=== PATIENT | female | born 1955 | race Caucasian/White ===

== ENCOUNTER 2017-04-03 13:49 | Observation (INO) ==
--- NOTE | 2017-04-03 15:14 | Emergency Department Note ---
Disposition Clinical Impression: Syncope and collapse, Polycythemia rubra vera Disposition: Admitted As Inpatient Condition: Good Reasons to Return/Additional Instructions: Chest pains, shortness of breath, severe back pain, repeat syncope, altered mental status, loss of consciousness, focal muscle weakness Referrals: Marva Venegas, CAROLYNE [Primary Care Provider] - Time of Disposition: 19:45 General Adult HPI - General Chief complaint: ED Syncope Stated complaint: Fall Head injury/syncopal episode Time Seen by Provider: 04/03/17 15:05 Source: patient Limitations: no limitations Nursing Notes Reviewed: Yes Vital Signs Reviewed: Yes - History of Present Illness HPI Narrative: Mrs. Martel is a 61 yo woman with history of CVA, intracranial hemorrhage, DM, who presented to the ED with witnessed fall this morning and altered mental status. The patient was apparently seen by daughter's boyfriend having fall backwards this morning. He did not appear the patient lost consciousness, however the boyfriend did mention that she appeared "out of it" for a few minutes after the fall. The patient does not seem to remember this experience at all. She cannot, whether or not this was a mechanical fall or if she had any sort of symptoms leading up to this fall. In fact she says that she is unable to remember anything between this morning and dinnertime last night. According to the patient's daughter, she does have a history of a stroke in 2007 and she also had a brain hemorrhage at some point earlier this year which was secondary to trauma. At this time she is complaining of no headache, visual disturbances, weakness, paresthesias. She did not lose bladder or bowel control at that time. She is not currently having any chest pains, shortness of breath, palpitations. To her knowledge this has never happened before. He she does admit to swelling in her left lower extremity which has been occurring for several days. It is not associated with any severe pain, however she did recently have a left knee replacement. Pain Scale: 0 - Related Data Home Medications Medication Instructions Recorded Confirmed Amitriptyline [Elavil] 25 mg PO HS 09/01/15 04/03/17 Furosemide [Lasix] 20 mg PO DAILY 09/01/15 04/03/17 Glimepiride [Amaryl] 2 mg PO QAM 09/01/15 04/03/17 Levothyroxine [Synthroid] 25 mcg PO DAILY 09/01/15 04/03/17 Lisinopril [Zestril] 20 mg PO DAILY 09/01/15 04/03/17 metFORMIN [Glucophage] 1,000 mg PO BIDWM 09/01/15 04/03/17 Aspirin [Lo-Dose Aspirin EC] 81 mg PO DAILY 06/11/16 04/03/17 Cholecalciferol (Vitamin D3) 2,000 unit PO DAILY 06/11/16 04/03/17 [Vitamin D] Multivitamin [Multivitamins] 1 each PO DAILY 06/11/16 04/03/17 Dabigatran [Pradaxa] 150 mg PO BID 09/25/16 04/03/17 HYDROcodone/Acet 5/325 mg [[place] 1 tab PO TID PRN 09/25/16 04/03/17 5-325 mg] Carvedilol [Carvedilol] 12.5 mg PO BID 04/03/17 04/03/17 Simvastatin [Zocor] 40 mg PO HS 04/03/17 04/03/17 Allergies Allergy/AdvReac Type Severity Reaction Status Date / Time diphenhydramine Allergy Unknown Unknown Verified 12/25/16 15:05 hydroxyurea Allergy Unknown Unknown Verified 12/25/16 15:05 latex Allergy Unknown Unknown Verified 12/25/16 15:05 cephalexin AdvReac Mild Rash Verified 12/25/16 15:05 clarithromycin AdvReac Mild Rash Verified 12/25/16 15:05 clindamycin AdvReac Mild Rash Verified 12/25/16 15:05 clonidine AdvReac Mild Fatigue Verified 12/25/16 15:05 propoxyphene AdvReac Mild Anxious Verified 12/25/16 15:05 rosuvastatin AdvReac Mild Nausea Verified 12/25/16 15:05 sulfamethoxazole AdvReac Mild Rash Verified 12/25/16 15:05 tramadol AdvReac Mild Insomnia Verified 12/25/16 15:05 trimethoprim AdvReac Mild Rash Verified 12/25/16 15:05 vancomycin AdvReac Mild Rash Verified 12/25/16 15:05 Constitutional: Denies: fever, chills, weakness Eyes: Denies: eye pain, vision change ENT ED: Denies: epistaxis, congestion Cardiovascular: Denies: chest pain, palpitations, dyspnea on exertion Respiratory: Denies: cough, dyspnea, wheezes, hemoptysis Neurological: Denies: weakness, numbness, paresthesias Past Medical History - Past Medical History Medical history: Reports: diabetes, hypertension, peripheral artery disease Surgical history: Reports: pacemaker/AICD, other (He has had a cervical fusion and the lower back fusion. She is had multiple surgeries on both hips, 5 on the right and 7 on the left.) Psychiatric history: Reports: depression - Social History Smoking Status: Never smoker Smokeless Tobacco Status: No Alcohol use: Reports: none Drug use: Reports: none Physical Exam Gen.: Vitals noted. No acute distress. AAOx3 HEENT: PERRL/EOMI, oropharynx clear, Normocephalic, atraumatic Neck: Supple. No adenopathy. Cardiac: RRR, no murmur, +S1/S2 Pulmonary: CTA bilaterally, no wheezes, rales or rhonchi, equal chest expansion Abdomen: soft, nontender, BS noted, no guarding Back: Nontender throughout. MSK: ROM intact, no joint swelling noted Extremities: LLE s/p Knee replacement, 2+ pitting edema with warmth. Neuro: A&Ox3, moves all extremities, no focal deficits Psych: Appropriate mood and behavior - General Limitations: no limitations General appearance: alert, in no apparent distress Course Vital Signs Temperature 99.4 F 04/03/17 14:00 Pulse Rate 76 04/03/17 14:00 Respiratory Rate 16 04/03/17 14:00 Blood Pressure 162/83 04/03/17 14:00 O2 Sat by Pulse Oximetry 99 04/03/17 14:00 Temperature 99.4 F 04/03/17 14:00 Pulse Rate 73 04/03/17 17:06 Respiratory Rate 18 04/03/17 19:27 Blood Pressure 160/80 04/03/17 19:27 O2 Sat by Pulse Oximetry 99 04/03/17 17:06 Oxygen Delivery Oxygen Delivery Room Air Medical Decision Making - MDM Narrative Medical decision making narrative: I reviewed the patient's labs and imaging which showed no acute process in the head or the chest. Labs to demonstrate a leukocytosis of 24, however the patient does have a history of elevated white count in the past. Given the history of recent surgery along with swelling of left leg, I did check a d- dimer which was positive, however a CTA of the chest was negative. Initial EKG on presentation was normal, however the patient does require workup of this episode of syncope including for possible arrhythmias. I spoke with the hospitalist who is accepted this patient for admission for arrhythmia in the setting of syncope. - Medical Records Medical records reviewed: Yes I reviewed the patient's medical records. - Lab Data Lab results reviewed: Yes I reviewed the patient's lab results. Result diagrams: 04/03/17 15:26 04/03/17 15:26 Lab Results 04/03/17 04/03/17 04/03/17 Range/Units 15:26 15:26 15:26 WBC 24.4 H (4.3-11.1) K/mcL RBC 5.33 H (3.82-4.97) M/mcL Hgb 10.8 L (11.5-15.4) g/dL Hct 37.8 (35.3-44.9) % MCV 70.9 L (83.0-100.0) fL MCH 20.3 L (28.0-33.3) pg MCHC 28.6 L (31.6-35.5) g/dL RDW 20.9 H (11.5-14.5) % Plt Count 838 H (140-400) K/mcL MPV 10.4 (9.4-12.4) fL Immature Gran % 1.1 (0-4) % Seg Neutrophils % 84.9 % Lymphocytes % 6.0 % Monocytes % 4.6 % Eosinophils % 2.3 % Basophils % 1.1 % Neutrophils # 20.7 H (1.6-8.9) K/mcL Lymphocytes # 1.5 (0.6-4.6) K/mcL Monocytes # 1.1 (0.0-1.3) K/mcL Eosinophils # 0.6 (0.0-0.6) K/mcL Basophils # 0.3 H (0.0-0.2) K/mcL Platelet Estimate Marked Increase H (Normal) Large Platelets Present A (Not Present) Hypochromasia Present A (Not Present) Anisocytosis 2+ A (Not Present) Microcytosis Present A (Not Present) D-Dimer (0-500) ng/mLFEU Sodium 134 L (136-145) mEq/L Potassium 4.1 (3.5-5.1) mEq/L Chloride 103 (98-107) mEq/L Carbon Dioxide 26 (23-29) mEq/L BUN 13 (8-23) mg/dL Creatinine 0.66 (0.60-1.20) mg/dL Est GFR ( Amer) > 60 (> 60) Est GFR (Non-Af Amer) > 60 (> 60) BUN/Creatinine Ratio 20 (6-26) Glucose 343 H (70-105) mg/dL Calculated Osmolality 292 (280-300) Lactic Acid (0.5-2.2) mmol/L Calcium 8.9 (8.6-10.3) mg/dL Troponin I < 0.03 (< 0.04) ng/mL 04/03/17 04/03/17 Range/Units 15:26 18:18 WBC (4.3-11.1) K/mcL RBC (3.82-4.97) M/mcL Hgb (11.5-15.4) g/dL Hct (35.3-44.9) % MCV (83.0-100.0) fL MCH (28.0-33.3) pg MCHC (31.6-35.5) g/dL RDW (11.5-14.5) % Plt Count (140-400) K/mcL MPV (9.4-12.4) fL Immature Gran % (0-4) % Seg Neutrophils % % Lymphocytes % % Monocytes % % Eosinophils % % Basophils % % Neutrophils # (1.6-8.9) K/mcL Lymphocytes # (0.6-4.6) K/mcL Monocytes # (0.0-1.3) K/mcL Eosinophils # (0.0-0.6) K/mcL Basophils # (0.0-0.2) K/mcL Platelet Estimate (Normal) Large Platelets (Not Present) Hypochromasia (Not Present) Anisocytosis (Not Present) Microcytosis (Not Present) D-Dimer 1948 H (0-500) ng/mLFEU Sodium (136-145) mEq/L Potassium (3.5-5.1) mEq/L Chloride (98-107) mEq/L Carbon Dioxide (23-29) mEq/L BUN (8-23) mg/dL Creatinine (0.60-1.20) mg/dL Est GFR ( Amer) (> 60) Est GFR (Non-Af Amer) (> 60) BUN/Creatinine Ratio (6-26) Glucose (70-105) mg/dL Calculated Osmolality (280-300) Lactic Acid 1.4 (0.5-2.2) mmol/L Calcium (8.6-10.3) mg/dL Troponin I (< 0.04) ng/mL - Radiology Data Radiology results reviewed: Yes I reviewed the patient's radiology results. - EKG Data EKG #1 EKG attestation: Yes I reviewed and interpreted this EKG. EKG shows normal: sinus rhythm Rate: normal
[2017-04-03 15:37] LABS: Basophils # 0.3 K/mcL (0.0-0.2); Basophils % 1.1 %; Eosinophils # 0.6 K/mcL (0.0-0.6); Eosinophils % 2.3 %; Hematocrit 37.8 % (35.3-44.9); Hemoglobin 10.8 g/dL (11.5-15.4); Immature Granulocytes % 1.1 % (0-4); Lymphocytes # 1.5 K/mcL (0.6-4.6); Mean Corpuscular HGB Conc 28.6 g/dL (31.6-35.5); Mean Corpuscular Hemoglobin 20.3 pg (28.0-33.3); Mean Corpuscular Volume 70.9 fL (83.0-100.0); Mean Platelet Volume 10.4 fL (9.4-12.4); Monocytes # 1.1 K/mcL (0.0-1.3); Monocytes % 4.6 %; Neutrophils # 20.7 K/mcL (1.6-8.9); Platelet Count 838 K/mcL (140-400); Red Blood Count 5.33 M/mcL (3.82-4.97); Red Cell Distribution Width 20.9 % (11.5-14.5); Segmented Neutrophils % 84.9 %
--- NOTE | 2017-04-03 15:41 | Emergency Department Note ---
START Narrative - START START: I examined this patient and my medical decision-making was reviewed with the [employer] MACHINE OPERATOR/PA/Advanced Practice Nurse/Resident Physician. I agree with the documented findings, disposition and treatment plan as described except to the extent set forth below. The patient did have what appears to be a syncopal episode. She had her episode witnessed by the daughter's boyfriend who is not here. He is not sure if she hit her head. She did fall straight backward from a seated position. The patient denies any neck pain and no neck pain palpation. Head CT will be done as the patient is anticoagulated. Also did have knee surgery on March 18 so will also have a Doppler left lower extremity as there is swelling there and a d-dimer. Additional labs including troponin are pending. I did review the EKG showing a normal sinus rhythm with a rate of 80 without evidence of acute ischemic change. There is no evidence of Brugada syndrome, prolonged QT, hypertrophic myopathy or WPW. The patient will be admitted to the hospital for further evaluation of likely syncope. She denies any localized numbness or weakness of extremities, slurred speech, facial droop or confusion. No chest pain, shortness of breath or sweating. [id number] I did speak with the hospitalist who accepted the patient for admission and the main indication of admission is arrhythmia evaluation as the patient did have a syncopal episode and we are unaware if there is preceding lightheadedness or this was a drop attack patient does have significant concern for coronary disease with her history of peripheral arterial disease hypertension or diabetes and this could certainly have been from a arrhythmia. 185
[2017-04-03 15:49] LABS: BUN/Creatinine Ratio 20 (6-26); Blood Urea Nitrogen 13 mg/dL (8-23); Calcium 8.9 mg/dL (8.6-10.3); Carbon Dioxide 26 mEq/L (23-29); Chloride 103 mEq/L (98-107); Glucose 343 mg/dL (70-105); Osmolality,Calculated 292 (280-300); Potassium 4.1 mEq/L (3.5-5.1); Sodium 134 mEq/L (136-145); eGFR For African Americans > 60 (> 60); eGFR For Non-African Americans > 60 (> 60)
[2017-04-03 16:05] LABS: Platelet Estimate Marked Increase (Normal)
[2017-04-03 16:06] LABS: Anisocytosis 2+ (Not Present); Hypochromasia Present (Not Present); Microcytosis Present (Not Present)
[2017-04-03 16:08] LABS: Large Platelets Present (Not Present)
[2017-04-03] MEDS ORDERED: Naloxone 0.4 MG/ML INJ IVP PRN (21:08)
[2017-04-03] MEDS ORDERED: Acetaminophen 325 MG TABLET PO PRN (21:08)
[2017-04-03] MEDS ORDERED: Ondansetron 4 MG/2 ML VIAL IVP PRN (21:08)
[2017-04-03] MEDS ORDERED: D5% in Water 1,000 ML IVC PRN (21:11)
[2017-04-03] MEDS ORDERED: *HR* Dextrose 50 % in Water (Syg) 50 ML SYRINGE IVP PRN (21:11)
[2017-04-03] MEDS ORDERED: Dextrose Gel 15 GM/37.5 ML TUBE PO PRN ×2 (21:11)
--- NOTE | 2017-04-03 21:15 | Internal Med History&Physical ---
Date of Encounter: 04/03/17 Time of Encounter: 21:00 Assessment and Plan (1) Syncope and collapse Current visit: Yes Status: Acute unclear etiology. no evidence of infection- UA not s/o UTI, chest XRay clear. D- dimer elevated but Venous Doppler B/L lower extremities negative for superficial or deep venous thromboses; CTA chest showed no PE. Continue Telemetry monitoring, cycle Troponins. Check carotid Doppler and Echocardiogram due to underlying h/o- polycythemia and increased risk of thrombosis; supportive care; (2) Essential hypertension Current visit: Yes Status: Chronic BP well-controlled; resume home meds; (3) Diabetes mellitus Current visit: Yes Status: Chronic blood sugars noted to be high; check HbA1C and start Accucheck blood glucose monitoring with sliding scale insulin as needed; diabetic diet; Qualifiers: Diabetes mellitus type: type 2 Diabetes mellitus complication status: with unspecified complications Diabetes mellitus terminal carman insulin use: without senior care use Qualified Code(s): E11.8 - Type 2 diabetes mellitus with unspecified complications (4) Atrial fibrillation Current visit: Yes Status: Chronic continue Telemetry monitoring; currently rate-controlled; continue beta khushi and anticoagulation with Pradaxa; Qualifiers: Atrial fibrillation type: paroxysmal Qualified Code(s): I48.0 - Paroxysmal atrial fibrillation (5) Polycythemia rubra vera Current visit: Yes Status: Chronic follows with Hematology, on intermittent phlebotomy; Hb lower than normal due to recent knee replacement surgery; continue to monitor; leukocytosis and thrombocytosis, c/w baseline; Internal Medicine - H&P: HPI Chief complaint: Syncope Admitted From: Emergency Dept Plans for Post Hospital Care: Home History of present illness: Ms. Martel is a 61 year old female with h/o- PCV, HTN, who presents with c/o- syncope. She was in her usual state of health until yesterday. SHe woke up this morning but could not remember whether or not she followed her daily routine, until she stood up from her bed and fell backwards "like a tree". This was witnessed by her family, who is not at bedside now. When she regained consciousness, she was in a chair-lift at home. No seizure-like activity reported. No prior similar episodes. No dizziness, chest pain, palpitations, diaphoresis, nausea, vomiting prior to this episode. She recently had left knee replacement and has associated leg swelling, using a walker. Past Med Surg Social Fam HX - Past Medical History Medical history: arthritis, atrial fibrillation, diabetes, hypertension, thyroid disease, other (PCV) Psychiatric history: depression - Past Surgical History Surgical History: hip replacement (7 hip replacements B/L), knee replacement ( left TKR), pacemaker/AICD, other (He has had a cervical fusion and the lower back fusion. She is had multiple surgeries on both hips, 5 on the right and 7 on the left.) - Social History Smoking Status: Never smoker Smokeless Tobacco Status: No Alcohol use: none Drug use: none Occupational status: unemployed Current living situation: Home, With Family Activity Level: Uses cane/walker Recent Out of Country Travel Within the Last 8 Weeks: No Exposure or Possible Exposure to Illness During Travel: No - Family History Mother Hx Family Cardiac Disorders: Yes (Pulomonary HTN, PR, CABG) Hx Family Respiratory Disorders: Yes (Emphysema) Hx Family Cancer: No Hx Family GI Disorders: No Hx Family Genitourinary Disorders: No Hx Family Endocrine Disorder: Yes (DM) Hx Family Musculoskeletal Disorders: No Hx Family Neuromuscular Disorders: No Hx Family Neurologic Disorders: No Hx Family HEENT Disorders: No Hx Family Autoimmune Disorders: No Hx Family Reproductive Disorders: No Hx Family Psychosocial Disorders: No Hx Family Medical Disorders: No Father Hx Family Cardiac Disorders: No Hx Family Respiratory Disorders: No Hx Family Cancer: Yes (Colon) Hx Family GI Disorders: No Hx Family Genitourinary Disorders: No Hx Family Endocrine Disorder: No Hx Family Musculoskeletal Disorders: No Hx Family Neuromuscular Disorders: No Hx Family Neurologic Disorders: No Hx Family HEENT Disorders: No Hx Family Autoimmune Disorders: No Hx Family Reproductive Disorders: No Hx Family Psychosocial Disorders: No Hx Family Medical Disorders: No Internal Medicine - H&P: Meds Amitriptyline [Elavil] 25 mg PO HS 09/01/15 [History] Furosemide [Lasix] 20 mg PO DAILY 09/01/15 [History] Glimepiride [Amaryl] 2 mg PO QAM 09/01/15 [History] Levothyroxine [Synthroid] 25 mcg PO DAILY 09/01/15 [History] Lisinopril [Zestril] 20 mg PO DAILY 09/01/15 [History] metFORMIN [Glucophage] 1,000 mg PO BIDWM 09/01/15 [History] Aspirin [Lo-Dose Aspirin EC] 81 mg PO DAILY 06/11/16 [History] Cholecalciferol (Vitamin D3) [Vitamin D] 2,000 unit PO DAILY 06/11/16 [History] Multivitamin [Multivitamins] 1 each PO DAILY 06/11/16 [History] Dabigatran [Pradaxa] 150 mg PO BID 09/25/16 [History] HYDROcodone/Acet 5/325 mg [[place] 5-325 mg] 1 tab PO TID PRN 09/25/16 [History] Carvedilol [Carvedilol] 12.5 mg PO BID 04/03/17 [History] Simvastatin [Zocor] 40 mg PO HS 04/03/17 [History] 3 Allergy/AdvReac Type Severity Reaction Status Date / Time diphenhydramine Allergy Unknown Unknown Verified 12/25/16 15:05 hydroxyurea Allergy Unknown Unknown Verified 12/25/16 15:05 latex Allergy Unknown Unknown Verified 12/25/16 15:05 cephalexin AdvReac Mild Rash Verified 12/25/16 15:05 clarithromycin AdvReac Mild Rash Verified 12/25/16 15:05 clindamycin AdvReac Mild Rash Verified 12/25/16 15:05 clonidine AdvReac Mild Fatigue Verified 12/25/16 15:05 propoxyphene AdvReac Mild Anxious Verified 12/25/16 15:05 rosuvastatin AdvReac Mild Nausea Verified 12/25/16 15:05 sulfamethoxazole AdvReac Mild Rash Verified 12/25/16 15:05 tramadol AdvReac Mild Insomnia Verified 12/25/16 15:05 trimethoprim AdvReac Mild Rash Verified 12/25/16 15:05 vancomycin AdvReac Mild Rash Verified 12/25/16 15:05 All Systems PM: A 10-system review of systems was performed and is negative for pertinent findings except as documented above in the HPI. - Constitutional Constitutional: no chills, no fever(s), no night sweats - EENT Eyes: no change in vision, no discharge, no pain, no photophobia Ears: no ear discharge, no ear pain, no tinnitus Nose, mouth and throat: no dysphagia, no nasal discharge, no neck pain, no sore throat - Cardiovascular Cardiovascular ROS IM: syncope - Respiratory Respiratory: no cough, no dyspnea, no wheezing, no excessive phlegm production - Gastrointestinal Gastrointestinal: no abdominal pain, no diarrhea, no hematemesis, no hematochezia, no melena, no nausea, no vomiting - Genitourinary Genitourinary: no change in urinary stream, no dysuria, no flank pain, no hematuria - Musculoskeletal Musculoskeletal ROS IM: no numbness, no tingling - Integumentary Integumentary IM: no rash, no unusual bruising - Neurological Neurological ROS: no confusion, no convulsions, no focal weakness, no numbness, no tingling, no tremor(s) - Hematologic/Lymphatic Hematologic/Lymphatic: no easy bruising - Constitutional Vitals: Temp Pulse Resp BP Pulse Ox 99.7 F H 74 16 164/74 98 04/03/17 19:36 04/03/17 19:36 04/03/17 19:36 04/03/17 19:36 04/03/17 19:36 General appearance: Present: A&O X 3, answers questions appropriately - Respiratory Respiratory exam: Present: CTAB. Absent: accessory muscle use, rales, rhonchi, wheezes - Cardiovascular Cardiovascular exam: Present: irregular rhythm, +S1, +S2. Absent: diastolic murmur, gallop, rubs, systolic murmur - GI/Abdominal GI/Abdominal exam: Present: normal bowel sounds, soft, no peritoneal signs. Absent: distended, tenderness - Extremities Exam Extremities exam: Present: full ROM (restricted in left knee due to recent surgery), pedal edema (left LE edema, surgical peterson and incision clean and dry on left knee), warm, radial pulses palpable and symmetrical. Absent: calf tenderness, cyanotic - Neurological Exam Neurological exam: Present: CN II-XII intact, oriented X3, no focal deficits. Absent: pronater drift, facial droop, speech deficit Internal Med - H&P Results - Labs CBC & Chem 7: 04/03/17 15:26 04/03/17 15:26 - EKG Data -: EKG Interpreted by Myself EKG shows normal: sinus rhythm (sinus arrhythmia) Rate: normal
[2017-04-03 23:50] LABS: Bilirubin,Urine Negative (Negative); Blood,Urine Negative (Negative); Clarity,Urine Clear (Clear); Color,Urine Yellow (Yellow); Glucose,Urine (UA) >=1000 mg/dL (Normal); Ketones,Urine Negative (Negative); Leukocyte Esterase,Urine Negative (Negative); Nitrite,Urine Negative (Negative); Protein,Urine 30 mg/dL (Neg-Trace); Specific Gravity,Urine > 1.030 (1.010-1.025); Urobilinogen,Urine Normal (Normal)
[2017-04-03 23:51] LABS: Bacteria,Urine None Seen per hpf (None-Few); Hyaline Casts,Urine None Seen per lpf (None-Few); RBC,Urine 0-3 per hpf (0-3); Squamous Epithelial Cell,Urine Moderate per lpf (None-Few); WBC,Urine 0-3 per hpf (0-3)
[2017-04-04] MEDS: *HR* HYDROcodone/Acet 5/325 mg TABLET PO PRN ×3 (01:47→20:42)
[2017-04-04 03:21] LABS: Basophils # 0.3 K/mcL (0.0-0.2); Basophils % 1.5 %; Eosinophils # 1.2 K/mcL (0.0-0.6); Eosinophils % 5.9 %; Hematocrit 32.8 % (35.3-44.9); Hemoglobin 9.6 g/dL (11.5-15.4); Lymphocytes # 2.3 K/mcL (0.6-4.6); Lymphocytes % 11.5 %; Mean Corpuscular HGB Conc 29.3 g/dL (31.6-35.5); Mean Corpuscular Hemoglobin 20.5 pg (28.0-33.3); Mean Corpuscular Volume 69.9 fL (83.0-100.0); Mean Platelet Volume 10.4 fL (9.4-12.4); Monocytes % 5.3 %; Neutrophils # 14.7 K/mcL (1.6-8.9); Platelet Count 704 K/mcL (140-400); Red Blood Count 4.69 M/mcL (3.82-4.97); Red Cell Distribution Width 20.2 % (11.5-14.5); Segmented Neutrophils % 74.8 %
[2017-04-04 03:37] LABS: BUN/Creatinine Ratio 17 (6-26); Blood Urea Nitrogen 10 mg/dL (8-23); Calcium 8.7 mg/dL (8.6-10.3); Carbon Dioxide 24 mEq/L (23-29); Chloride 105 mEq/L (98-107); Chol/HDL Ratio 3.8 (0-4.9); Cholesterol 140 mg/dL (< 200); Glucose 209 mg/dL (70-105); HDL Cholesterol 37 mg/dL (40-59); LDL Cholesterol,Calculated 73 mg/dL (0-99); Osmolality,Calculated 287 (280-300); Potassium 3.8 mEq/L (3.5-5.1); Sodium 136 mEq/L (136-145); Triglycerides 148 mg/dL (< 150); eGFR For African Americans > 60 (> 60); eGFR For Non-African Americans > 60 (> 60)
[2017-04-04 04:42] LABS: Anisocytosis 2+ (Not Present); Hypochromasia Present (Not Present); Microcytosis Present (Not Present); Platelet Estimate Marked Increase (Normal); Poikilocytosis 1+ (Not Present)
[2017-04-04 04:43] LABS: Large Platelets Present (Not Present)
[2017-04-04] MEDS: Levothyroxine 25 MCG TABLET PO SCH (05:35)
[2017-04-04] MEDS: Furosemide 20 MG TABLET PO SCH (09:14)
[2017-04-04] MEDS: *HR* Dabigatran 150 MG CAPSULE PO SCH ×2 (09:14→20:37)
[2017-04-04] MEDS: Aspirin Enteric Coated 81 MG Tablet PO SCH (09:14)
[2017-04-04] MEDS: Insulin LISPRO 300 UNITS/3 ML VIAL SQ SCH ×3 (09:15→17:50)
[2017-04-04] MEDS: Lisinopril 20 MG TABLET PO SCH (09:15)
--- NOTE | 2017-04-04 17:14 | Internal Med Progress Note ---
Date of Encounter: 04/04/17 Time of Encounter: 17:10 - Assessment and plan (1) Syncope and collapse Current Visit: Yes Status: Acute (2) Essential hypertension Current Visit: Yes Status: Chronic (3) Diabetes mellitus Current Visit: Yes Status: Chronic Qualifiers: Diabetes mellitus type: type 2 Diabetes mellitus complication status: with unspecified complications Diabetes mellitus middle or intermediate school principal insulin use: without middle or intermediate school principal use Qualified Code(s): E11.8 - Type 2 diabetes mellitus with unspecified complications (4) Atrial fibrillation Current Visit: Yes Status: Chronic Qualifiers: Atrial fibrillation type: paroxysmal Qualified Code(s): I48.0 - Paroxysmal atrial fibrillation (5) History of left knee replacement Current Visit: Yes Status: Acute Assessment and plan: ECHO AND CAROTIDS ORDERED AND PENDING. CT HEAD SHOWED PRIOR STROKE PT HAD NOT BEEN HYDRATING WELL PRIOR TO SYNCOPAL EPISODE. CHECK ORTHOSTATIC VITALS. WBC IMPROVING, NO SIGNS OF ACUTE INFECTION IN THE LEFT KNEE. S/P LEFT KNEE REPLACEMENT ABOUT 2WKS AGO. - Subjective Interval history: REPORTS FEELING BETTER - Constitutional Vitals: Temp Pulse Resp BP Pulse Ox 97.9 F 75 16 158/70 99 04/04/17 15:54 04/04/17 15:54 04/04/17 15:54 04/04/17 15:54 04/04/17 16:50 General appearance: Present: A&O X 3, answers questions appropriately - Head Head exam: Present: atraumatic, normocephalic - Eye Eye exam: Present: PERRL, conjuntiva pink, sclera anicteric Pupils: Present: PERRL - Neck Neck exam general surgery: Present: supple, trachea midline. Absent: lymphadenopathy - Respiratory Respiratory exam: Present: CTAB. Absent: accessory muscle use, rales, rhonchi, wheezes - Cardiovascular Cardiovascular exam: Present: RRR, +S1, +S2. Absent: diastolic murmur, gallop, rubs, systolic murmur - GI/Abdominal GI/Abdominal exam: Present: normal bowel sounds, soft, no peritoneal signs. Absent: distended, tenderness - Extremities Exam Extremities exam: Present: warm, radial pulses palpable and symmetrical. Absent : calf tenderness, cyanotic, pedal edema - Neurological Exam Neurological exam: Present: CN II-XII intact, oriented X3, no focal deficits. Absent: pronater drift, facial droop, speech deficit - Skin Skin exam: Present: dry, intact Internal Medicine: Result - Labs CBC & Chem 7: 04/04/17 03:11 04/04/17 03:11 Labs: Short CBC 04/04/17 Range/Units 03:11 WBC 19.6 H (4.3-11.1) K/mcL Hgb 9.6 L (11.5-15.4) g/dL Hct 32.8 L (35.3-44.9) % Plt Count 704 H (140-400) K/mcL Neutrophils # 14.7 H (1.6-8.9) K/mcL BMP 04/04/17 03:11 Sodium 136 Potassium 3.8 Chloride 105 Carbon Dioxide 24 BUN 10 Creatinine 0.60 Glucose 209 H Calcium 8.7 Cardiac Enzymes 04/03/17 04/04/17 04/04/17 Range/Units 21:54 03:11 08:54 Troponin I < 0.03 < 0.03 < 0.03 (< 0.04) ng/mL Urine 04/03/17 Range/Units 23:39 Urine Color Yellow (Yellow) Urine Clarity Clear (Clear) Urine pH 7.0 (5.0-8.0) pH Units Ur Specific Star > 1.030 H (1.010-1.025) Urine Protein 30 H (Neg-Trace) mg/dL Urine Glucose (UA) >=1000 H (Normal) mg/dL - ABG Interpretation ABG results: PT/INR, D-dimer D-Dimer 1948 ng/mLFEU (0-500) H 04/03/17 15:26 Consult Discharge Plan - Plan Additional Instructions: Chest pains, shortness of breath, severe back pain, repeat syncope, altered mental status, loss of consciousness, focal muscle weakness Referrals: Marva Venegas, CAROLYNE [Primary Care Provider] - 04/09/17 11:00 am
--- NOTE | 2017-04-04 19:59 | Electrocardiograph Report ---
[place] [id number] Test Date: 2017-04-03 Pat Name: Bernie Martel Department: 103 Room: 3B23 Gender: F Property Management Intern: MIKO : 1955 Requested By: Olayinka Alba Order Number: [id number] Reading MD: Ángel Shah MD Measurements Intervals [place] Rate: 80 P: 58 NM: 148 QRS: 4 QRSD: 70 T: 4 QT: 368 QTc: 403 Interpretive Statements SINUS RHYTHM WITH SINUS ARRHYTHMIA Poor R wave progression Electronically Signed On 04-04-2017 19:58:14 EST by Ángel Shah MD
[2017-04-04] MEDS ORDERED: Insulin LISPRO 300 UNITS/3 ML VIAL SQ SCH (21:00)
[2017-04-05] MEDS: Levothyroxine 25 MCG TABLET PO SCH (05:46)
[2017-04-05] MEDS: *HR* HYDROcodone/Acet 5/325 mg TABLET PO PRN (05:46)
[2017-04-05] MEDS: Aspirin Enteric Coated 81 MG Tablet PO SCH (08:12)
[2017-04-05] MEDS: *HR* Dabigatran 150 MG CAPSULE PO SCH (08:12)
[2017-04-05] MEDS: Lisinopril 20 MG TABLET PO SCH (08:12)
[2017-04-05] MEDS: Furosemide 20 MG TABLET PO SCH (08:14)
[2017-04-05] MEDS: Insulin LISPRO 300 UNITS/3 ML VIAL SQ SCH ×2 (08:15→12:57)
--- NOTE | 2017-04-05 16:42 | Discharge Summary ---
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 use Qualified Code(s): E11.8 - Type 2 diabetes mellitus with unspecified complications (4) Atrial fibrillation Priority: Secondary Status: Chronic Qualifiers: Atrial fibrillation type: paroxysmal Qualified Code(s): I48.0 - Paroxysmal atrial fibrillation (5) History of left knee replacement Priority: Secondary Status: Acute - Discharge Medications Home Medications: Amitriptyline [Elavil] 25 mg PO HS 09/01/15 [History] Furosemide [Lasix] 20 mg PO DAILY 09/01/15 [History] Glimepiride [Amaryl] 2 mg PO QAM 09/01/15 [History] Levothyroxine [Synthroid] 25 mcg PO DAILY 09/01/15 [History] Lisinopril [Zestril] 20 mg PO DAILY 09/01/15 [History] metFORMIN [Glucophage] 1,000 mg PO BIDWM 09/01/15 [History] Aspirin [Lo-Dose Aspirin EC] 81 mg PO DAILY 06/11/16 [History] Cholecalciferol (Vitamin D3) [Vitamin D3] 2,000 unit PO DAILY 06/11/16 [History] Multivitamin [Multivitamins] 1 each PO DAILY 06/11/16 [History] Dabigatran [Pradaxa] 150 mg PO BID 09/25/16 [History] HYDROcodone/Acet 5/325 mg [[place] 5-325 mg] 1 tab PO TID PRN 09/25/16 [History] Carvedilol 12.5 mg PO BID 04/03/17 [History] Simvastatin [Zocor] 40 mg PO HS 04/03/17 [History] Allergies/Adverse Reactions: 3 Allergy/AdvReac Type Severity Reaction Status Date / Time diphenhydramine Allergy Unknown Unknown Verified 12/25/16 15:05 hydroxyurea Allergy Unknown Unknown Verified 12/25/16 15:05 latex Allergy Unknown Unknown Verified 12/25/16 15:05 cephalexin AdvReac Mild Rash Verified 12/25/16 15:05 clarithromycin AdvReac Mild Rash Verified 12/25/16 15:05 clindamycin AdvReac Mild Rash Verified 12/25/16 15:05 clonidine AdvReac Mild Fatigue Verified 12/25/16 15:05 propoxyphene AdvReac Mild Anxious Verified 12/25/16 15:05 rosuvastatin AdvReac Mild Nausea Verified 12/25/16 15:05 sulfamethoxazole AdvReac Mild Rash Verified 12/25/16 15:05 tramadol AdvReac Mild Insomnia Verified 12/25/16 15:05 trimethoprim AdvReac Mild Rash Verified 12/25/16 15:05 vancomycin AdvReac Mild Rash Verified 12/25/16 15:05 Procedures/tests Complete & Pending: Procedures Performed prior 72 hours Category Date Time Status EV carotid duplex imaging BI Routine Y 04/04/17 21:10 Completed Date of admission: 04/03/17 19:08 Primary care physician: Marva Venegas CNP - Patient Status Disposition: Home, Self-Care Condition: Good Overall status at discharge: patient is back to baseline - Discharge Instructions Follow Up With: Marva Venegas CNP [Primary Care Provider] - 04/09/17 11:00 am Additional Instructions: Chest pains, shortness of breath, severe back pain, repeat syncope, altered mental status, loss of consciousness, focal muscle weakness - Diet and Activity Activity: as per physical therapy, increase activity as tolerated Diet: low fat, low cholesterol Hospital course: Ms. Martel is a 61 year old female with h/o- PCV, HTN, who presents with c/o- syncope. She was in her usual state of health. Shortly after waking up, she could not remember whether or not she followed her daily routine, until she stood up from her bed and fell backwards. Her symptoms seemed to be related to vasovagal syncope. Pt does take lasix and she added that she had not been well hydrated. She had a carotid US which showed minimal plaque. She is asked to check a [facility] outpatient. Pt is stable for DC. - Time Spent with Patient Total time spent providing and/or coordinating discharge services: - Constitutional Vitals: Temp Pulse Resp BP Pulse Ox 97.9 F 62 16 128/68 97 04/05/17 11:04 04/05/17 11:04 04/05/17 11:04 04/05/17 11:04 04/05/17 11:04 General appearance: Present: A&O X 3, answers questions appropriately - Head Head exam: Present: atraumatic, normocephalic - Eye Eye exam: Present: PERRL, conjuntiva pink, sclera anicteric Pupils: Present: PERRL - Neck Neck exam general surgery: Present: supple, trachea midline. Absent: lymphadenopathy - Respiratory Respiratory exam: Present: CTAB. Absent: accessory muscle use, rales, rhonchi, wheezes - Cardiovascular Cardiovascular exam: Present: RRR, +S1, +S2. Absent: diastolic murmur, gallop, rubs, systolic murmur - GI/Abdominal GI/Abdominal exam: Present: normal bowel sounds, soft, no peritoneal signs. Absent: distended, tenderness - Extremities Exam Extremities exam: Present: warm, radial pulses palpable and symmetrical. Absent : calf tenderness, cyanotic, pedal edema - Neurological Exam Neurological exam: Present: CN II-XII intact, oriented X3, no focal deficits. Absent: pronater drift, facial droop, speech deficit - Skin Skin exam: Present: dry, intact
[2017-04-05 17:09] VITALS: BP 163/76
== END 2017-04-05 17:48 | disposition home or self-care (01) ==
LOC: 3BNU 13:49 → EMEROO 13:49 → 3BNU 19:33
PROVIDERS: ADMIT Internal Medicine; ATTEND Registered Nurse

== ENCOUNTER 2019-11-18 15:18 | Inpatient (IN) ==
[2019-11-18] MEDS ORDERED: Isovue-370 500 ML BOTTLE IVP ONE (16:05)
[2019-11-18 17:02] LABS: Basophils # 0.3 K/mcL (0.0-0.2); Basophils % 1.4 %; Eosinophils # 0.2 K/mcL (0.0-0.6); Eosinophils % 1.2 %; Hematocrit 61.8 % (35.3-44.9); Hemoglobin 18.5 g/dL (11.5-15.4); Immature Granulocytes % 2.4 % (0-4); Lymphocytes # 0.8 K/mcL (0.6-4.6); Mean Corpuscular HGB Conc 29.9 g/dL (31.6-35.5); Mean Corpuscular Hemoglobin 23.4 pg (28.0-33.3); Mean Corpuscular Volume 78.3 fL (83.0-100.0); Monocytes # 0.5 K/mcL (0.0-1.3); Monocytes % 2.7 %; Neutrophils # 17.6 K/mcL (1.6-8.9); Platelet Count 351 K/mcL (140-400); Red Blood Count 7.89 M/mcL (3.82-4.97); Segmented Neutrophils % 88.3 %; White Blood Count 19.9 K/mcL (4.3-11.1)
[2019-11-18] MEDS ORDERED: *HR* Heparin 5,000 UNIT/ML VIAL IVP ONE (17:02)
[2019-11-18] MEDS ORDERED: *HR* Heparin 5,000 UNIT/ML VIAL IVP PRN ×3 (17:02→18:11)
[2019-11-18] MEDS ORDERED: Heparin 25,000UNIT/250ML 1/2NS 25,000 UNIT/250 ML IV.SOLN IVC SCH (17:15)
[2019-11-18] MEDS ORDERED: 0.9 % Sodium Chloride 1,000 ML IV ONE (17:39)
[2019-11-18 18:18] LABS: Heparin anti-factor XA UFH < 0.04 IU/mL (0.30-0.70)
[2019-11-18 18:19] LABS: Prothrombin Time 11.2 Seconds (9.4-12.1)
[2019-11-18 18:20] LABS: Activated Partial Thrombo Time 35.6 Seconds (26.0-36.0)
[2019-11-18 19:05] LABS: Mean Corpuscular HGB Conc 29.9 g/dL (31.6-35.5)
[2019-11-18 19:07] LABS: Hematocrit 60.3 % (35.3-44.9); Mean Corpuscular Hemoglobin 23.1 pg (28.0-33.3); Mean Corpuscular Volume 77.4 fL (83.0-100.0); Platelet Count 320 K/mcL (140-400); Red Blood Count 7.79 M/mcL (3.82-4.97); Red Cell Distribution Width 23.9 % (11.5-14.5); White Blood Count 20.2 K/mcL (4.3-11.1)
[2019-11-18 19:24] LABS: Alanine Aminotransferase 11 Units/L (7-52); Albumin 2.7 g/dL (3.5-5.7); Alkaline Phosphatase 169 Units/L (34-104); Aspartate Amino Transferase 15 Units/L (13-39); BUN/Creatinine Ratio 31 (6-26); Blood Urea Nitrogen 23 mg/dL (8-23); Calcium 8.4 mg/dL (8.6-10.3); Carbon Dioxide 18 mEq/L (23-29); Chloride 105 mEq/L (98-107); Glucose 319 mg/dL (70-105); Osmolality,Calculated 296 (280-300); Sodium 135 mEq/L (136-145); eGFR For African Americans > 60 (> 60); eGFR For Non-African Americans > 60 (> 60)
[2019-11-18] MEDS: Heparin 25,000UNIT/250ML 1/2NS 25,000 UNIT/250 ML IV.SOLN IVC SCH (19:30)
[2019-11-18 19:50] LABS: Albumin/Globulin Ratio 1.1 (1.1-2.2); Bilirubin,Total 0.6 mg/dL (0.3-1.0); Globulin 2.5 g/dL (2.4-3.5); Total Protein 5.2 g/dL (6.4-8.9)
[2019-11-18 20:49] LABS: Capillary Blood PH 7.43 pH Units (7.32-7.45)
[2019-11-18] MEDS ORDERED: Aspirin 325 MG TABLET PO ONE (20:50)
[2019-11-18] MEDS ORDERED: Doxycycline 100 MG CAPSULE PO ONE (20:50)
[2019-11-18] MEDS ORDERED: Naloxone 0.4 MG/ML INJ IVP PRN (21:34)
[2019-11-19] MEDS ORDERED: *HR* Metoprolol 5 MG/5 ML VIAL IVP PRN (03:06)
[2019-11-19] MEDS ORDERED: Dextrose Gel 15 GM/37.5 ML TUBE PO PRN ×2 (03:51)
[2019-11-19] MEDS ORDERED: *HR* Dextrose 50 % in Water (Vial) 50 ML VIAL IVP PRN (03:51)
[2019-11-19] MEDS ORDERED: D5% in Water 1,000 ML IVC PRN (03:51)
[2019-11-19] MEDS: carvediloL 6.25 MG TABLET PO SCH ×2 (08:19→19:56)
[2019-11-19] MEDS: Cholecalciferol (D-3) 1,000 UNIT (25MCG) TABLET PO SCH (08:19)
[2019-11-19] MEDS: lisinopriL 20 MG TABLET PO SCH (08:19)
[2019-11-19] MEDS: Insulin LISPRO 300 UNITS/3 ML VIAL SQ SCH ×4 (08:23→21:12)
[2019-11-19 09:59] LABS: Basophils # 0.3 K/mcL (0.0-0.2); Basophils % 1.2 %; Eosinophils # 0.4 K/mcL (0.0-0.6); Eosinophils % 1.6 %; Hematocrit 57.8 % (35.3-44.9); Lymphocytes # 1.1 K/mcL (0.6-4.6); Lymphocytes % 4.8 %; Mean Corpuscular HGB Conc 29.4 g/dL (31.6-35.5); Mean Corpuscular Hemoglobin 23.4 pg (28.0-33.3); Mean Corpuscular Volume 79.5 fL (83.0-100.0); Mean Platelet Volume 11.3 fL (9.4-12.4); Monocytes # 0.7 K/mcL (0.0-1.3); Monocytes % 3.1 %; Neutrophils # 19.7 K/mcL (1.6-8.9); Platelet Count 386 K/mcL (140-400); Red Blood Count 7.27 M/mcL (3.82-4.97); Red Cell Distribution Width 23.9 % (11.5-14.5); Segmented Neutrophils % 86.3 %; White Blood Count 22.8 K/mcL (4.3-11.1)
[2019-11-19 10:05] LABS: BUN/Creatinine Ratio 22 (6-26); Blood Urea Nitrogen 17 mg/dL (8-23); Carbon Dioxide 22 mEq/L (23-29); Chloride 106 mEq/L (98-107); Glucose 245 mg/dL (70-105); Osmolality,Calculated 292 (280-300); Potassium 4.3 mEq/L (3.5-5.1); Sodium 136 mEq/L (136-145); eGFR For African Americans > 60 (> 60); eGFR For Non-African Americans > 60 (> 60)
[2019-11-19] MEDS: *HR* Heparin 5,000 UNIT/ML VIAL IVP PRN (13:36)
[2019-11-19] MEDS: Heparin 25,000UNIT/250ML 1/2NS 25,000 UNIT/250 ML IV.SOLN IVC SCH (21:10)
[2019-11-19] MEDS ORDERED: *HR* HYDROmorphone 2 MG TABLET PO ONE (22:20)
[2019-11-19] MEDS ORDERED: *HR* LORazepam 2 MG/ML VIAL IVP ONE (22:22)
[2019-11-20 05:27] LABS: Eosinophils % 1.6 %; Immature Granulocytes % 2.9 % (0-4); Mean Corpuscular Volume 81.1 fL (83.0-100.0)
[2019-11-20 05:29] LABS: Basophils # 0.3 K/mcL (0.0-0.2); Basophils % 1.3 %; Eosinophils # 0.3 K/mcL (0.0-0.6); Hemoglobin 17.1 g/dL (11.5-15.4); Immature Platelets 10.1 % (1.1-6.1); Lymphocytes # 1.7 K/mcL (0.6-4.6); Lymphocytes % 8.2 %; Mean Corpuscular Hemoglobin 22.7 pg (28.0-33.3); Mean Platelet Volume 11.5 fL (9.4-12.4); Monocytes # 0.7 K/mcL (0.0-1.3); Monocytes % 3.2 %; Neutrophils # 16.9 K/mcL (1.6-8.9); Nucleated Red Blood Cells 0.1 /100 WBC (0); Platelet Count 382 K/mcL (140-400); Red Blood Count 7.53 M/mcL (3.82-4.97); Red Cell Distribution Width 24.2 % (11.5-14.5); Segmented Neutrophils % 82.8 %; White Blood Count 20.4 K/mcL (4.3-11.1)
[2019-11-20 05:53] LABS: Hematocrit 61.1 % (35.3-44.9)
[2019-11-20 05:54] LABS: BUN/Creatinine Ratio 25 (6-26); Blood Urea Nitrogen 18 mg/dL (8-23); Carbon Dioxide 17 mEq/L (23-29); Chloride 108 mEq/L (98-107); Potassium 4.1 mEq/L (3.5-5.1); Sodium 136 mEq/L (136-145); eGFR For African Americans > 60 (> 60)
[2019-11-20 05:55] LABS: Glucose 170 mg/dL (70-105); Magnesium 1.4 mg/dL (1.6-2.6); Osmolality,Calculated 288 (280-300); eGFR For Non-African Americans > 60 (> 60)
[2019-11-20] MEDS: Levothyroxine 25 MCG TABLET PO SCH (06:21)
[2019-11-20 06:27] LABS: Platelet Estimate Normal (Normal)
[2019-11-20 08:29] LABS: Estimated Average Glucose 306 mg/dl
[2019-11-20] MEDS: lisinopriL 20 MG TABLET PO SCH (09:26)
[2019-11-20] MEDS: amLODIPine 5 MG TABLET PO SCH (09:26)
[2019-11-20] MEDS: Cholecalciferol (D-3) 1,000 UNIT (25MCG) TABLET PO SCH (09:26)
[2019-11-20] MEDS: Multivit/Ca/Min/Fe/FA 1 TAB TABLET PO SCH (09:26)
[2019-11-20] MEDS: carvediloL 6.25 MG TABLET PO SCH ×2 (09:26→21:26)
[2019-11-20] MEDS: Insulin LISPRO 300 UNITS/3 ML VIAL SQ SCH ×4 (09:27→21:27)
[2019-11-20] MEDS: *HR* Heparin 5,000 UNIT/ML VIAL IVP PRN (12:41)
[2019-11-20] MEDS ORDERED: *HR* Warfarin 5 MG TABLET PO ONE (18:00)
[2019-11-20] MEDS ORDERED: Warfarin perPT PO PRN (18:00)
[2019-11-20] MEDS: Heparin 25,000UNIT/250ML 1/2NS 25,000 UNIT/250 ML IV.SOLN IVC SCH (18:42)
[2019-11-21] MEDS: Levothyroxine 25 MCG TABLET PO SCH (05:24)
[2019-11-21 06:35] LABS: Red Cell Distribution Width 23.9 % (11.5-14.5)
[2019-11-21 06:38] LABS: Hemoglobin 15.7 g/dL (11.5-15.4); INR 1.1; Immature Platelets 10.1 % (1.1-6.1); Mean Corpuscular HGB Conc 28.5 g/dL (31.6-35.5); Mean Corpuscular Hemoglobin 22.8 pg (28.0-33.3); Mean Corpuscular Volume 79.7 fL (83.0-100.0); Mean Platelet Volume 11.3 fL (9.4-12.4); Nucleated Red Blood Cells 0.1 /100 WBC (0); Platelet Count 353 K/mcL (140-400); Prothrombin Time 12.6 Seconds (9.4-12.1); White Blood Count 17.4 K/mcL (4.3-11.1)
[2019-11-21 06:41] LABS: Activated Partial Thrombo Time 76.9 Seconds (26.0-36.0)
[2019-11-21 06:59] LABS: BUN/Creatinine Ratio 27 (6-26); Blood Urea Nitrogen 21 mg/dL (8-23); Calcium 8.1 mg/dL (8.6-10.3); Carbon Dioxide 22 mEq/L (23-29); Chloride 108 mEq/L (98-107); Glucose 175 mg/dL (70-105); Magnesium 1.7 mg/dL (1.6-2.6); Osmolality,Calculated 293 (280-300); Potassium 3.8 mEq/L (3.5-5.1); Sodium 138 mEq/L (136-145); eGFR For African Americans > 60 (> 60); eGFR For Non-African Americans > 60 (> 60)
[2019-11-21 07:18] LABS: Neutrophils # 15.3 K/mcL (1.6-8.9); Platelet Estimate Normal (Normal); Reactive Lymphocytes Present (Not Present)
[2019-11-21] MEDS ORDERED: Isovue-370 500 ML BOTTLE IVP ONE ×2 (08:54→10:56)
[2019-11-21] MEDS: Cholecalciferol (D-3) 1,000 UNIT (25MCG) TABLET PO SCH (09:08)
[2019-11-21] MEDS: Multivit/Ca/Min/Fe/FA 1 TAB TABLET PO SCH (09:08)
[2019-11-21] MEDS: carvediloL 6.25 MG TABLET PO SCH ×2 (09:08→19:44)
[2019-11-21] MEDS: amLODIPine 5 MG TABLET PO SCH (09:09)
[2019-11-21] MEDS: lisinopriL 20 MG TABLET PO SCH (09:09)
[2019-11-21] MEDS: Insulin LISPRO 300 UNITS/3 ML VIAL SQ SCH ×4 (09:11→20:31)
[2019-11-21] MEDS: Heparin 25,000UNIT/250ML 1/2NS 25,000 UNIT/250 ML IV.SOLN IVC SCH (17:48)
[2019-11-21] MEDS ORDERED: *HR* Warfarin 5 MG TABLET PO ONE (18:00)
[2019-11-22] MEDS ORDERED: Isovue-370 500 ML BOTTLE IVP ONE (05:17)
[2019-11-22] MEDS: Levothyroxine 25 MCG TABLET PO SCH (05:42)
[2019-11-22] MEDS: lisinopriL 20 MG TABLET PO SCH (08:19)
[2019-11-22] MEDS: carvediloL 6.25 MG TABLET PO SCH ×2 (08:19→20:09)
[2019-11-22] MEDS: Insulin LISPRO 300 UNITS/3 ML VIAL SQ SCH ×4 (08:19→20:08)
[2019-11-22] MEDS: Insulin DETEMIR 100 UNIT/ML X5UNITS SQ SCH (08:19)
[2019-11-22] MEDS: amLODIPine 5 MG TABLET PO SCH (08:19)
[2019-11-22] MEDS: Multivit/Ca/Min/Fe/FA 1 TAB TABLET PO SCH (08:19)
[2019-11-22 09:50] LABS: Basophils # 0.4 K/mcL (0.0-0.2); Hemoglobin 16.2 g/dL (11.5-15.4); Mean Corpuscular HGB Conc 28.8 g/dL (31.6-35.5); Mean Corpuscular Hemoglobin 23.6 pg (28.0-33.3); Mean Platelet Volume 10.7 fL (9.4-12.4); Platelet Count 411 K/mcL (140-400); Red Blood Count 6.87 M/mcL (3.82-4.97); Red Cell Distribution Width 24.2 % (11.5-14.5); White Blood Count 20.6 K/mcL (4.3-11.1)
[2019-11-22] MEDS: Cholecalciferol (D-3) 1,000 UNIT (25MCG) TABLET PO SCH (10:01)
[2019-11-22 10:10] LABS: BUN/Creatinine Ratio 24 (6-26); Blood Urea Nitrogen 20 mg/dL (8-23); Calcium 8.2 mg/dL (8.6-10.3); Carbon Dioxide 20 mEq/L (23-29); Chloride 107 mEq/L (98-107); Glucose 283 mg/dL (70-105); Magnesium 1.7 mg/dL (1.6-2.6); Osmolality,Calculated 293 (280-300); Potassium 4.2 mEq/L (3.5-5.1); Sodium 135 mEq/L (136-145); eGFR For African Americans > 60 (> 60); eGFR For Non-African Americans > 60 (> 60)
[2019-11-22 10:17] LABS: Hematocrit 56.3 % (35.3-44.9)
[2019-11-22 10:21] LABS: Eosinophils # 0.2 K/mcL (0.0-0.6); Lymphocytes # 2.5 K/mcL (0.6-4.6); Monocytes # 0.8 K/mcL (0.0-1.3); Neutrophils # 16.7 K/mcL (1.6-8.9); Platelet Estimate Normal (Normal)
[2019-11-22 10:22] LABS: Anisocytosis 1+ (Not Present); Poikilocytosis 1+ (Not Present)
[2019-11-22 10:38] LABS: INR 1.3; Prothrombin Time 15.3 Seconds (9.4-12.1)
[2019-11-22 10:41] LABS: Activated Partial Thrombo Time 42.7 Seconds (26.0-36.0)
[2019-11-22] MEDS: *HR* Heparin 5,000 UNIT/ML VIAL IVP PRN (11:09)
[2019-11-22] MEDS ORDERED: *HR* LORazepam 0.5 MG TABLET PO PRN (13:42)
[2019-11-22] MEDS ORDERED: *HR* Warfarin 5 MG TABLET PO ONE (18:00)
[2019-11-22] MEDS: Heparin 25,000UNIT/250ML 1/2NS 25,000 UNIT/250 ML IV.SOLN IVC SCH (20:10)
[2019-11-23 01:15] LABS: INR 1.7; Prothrombin Time 18.8 Seconds (9.4-12.1)
[2019-11-23 01:16] LABS: Basophils # 0.3 K/mcL (0.0-0.2); Basophils % 1.5 %; Eosinophils # 0.4 K/mcL (0.0-0.6); Hematocrit 52.4 % (35.3-44.9); Hemoglobin 15.1 g/dL (11.5-15.4); Lymphocytes # 1.4 K/mcL (0.6-4.6); Lymphocytes % 7.6 %; Mean Corpuscular HGB Conc 28.8 g/dL (31.6-35.5); Mean Corpuscular Hemoglobin 23.1 pg (28.0-33.3); Mean Platelet Volume 10.9 fL (9.4-12.4); Monocytes # 0.5 K/mcL (0.0-1.3); Monocytes % 2.6 %; Neutrophils # 15.8 K/mcL (1.6-8.9); Nucleated Red Blood Cells 0.1 /100 WBC (0); Platelet Count 461 K/mcL (140-400); Red Blood Count 6.55 M/mcL (3.82-4.97); Red Cell Distribution Width 23.8 % (11.5-14.5); Segmented Neutrophils % 83.3 %
[2019-11-23 01:32] LABS: BUN/Creatinine Ratio 24 (6-26); Blood Urea Nitrogen 23 mg/dL (8-23); Carbon Dioxide 21 mEq/L (23-29); Chloride 110 mEq/L (98-107); Glucose 149 mg/dL (70-105); Magnesium 1.7 mg/dL (1.6-2.6); Osmolality,Calculated 292 (280-300); Potassium 3.9 mEq/L (3.5-5.1); Sodium 138 mEq/L (136-145); eGFR For African Americans > 60 (> 60); eGFR For Non-African Americans 59 (> 60)
[2019-11-23 01:37] LABS: Anisocytosis 1+ (Not Present); Platelet Estimate Normal (Normal)
[2019-11-23] MEDS: Levothyroxine 25 MCG TABLET PO SCH (05:26)
[2019-11-23] MEDS: Multivit/Ca/Min/Fe/FA 1 TAB TABLET PO SCH (09:18)
[2019-11-23] MEDS: amLODIPine 5 MG TABLET PO SCH (09:18)
[2019-11-23] MEDS: Cholecalciferol (D-3) 1,000 UNIT (25MCG) TABLET PO SCH (09:18)
[2019-11-23] MEDS: lisinopriL 20 MG TABLET PO SCH (09:18)
[2019-11-23] MEDS: carvediloL 6.25 MG TABLET PO SCH ×2 (09:18→20:02)
[2019-11-23] MEDS: Insulin LISPRO 300 UNITS/3 ML VIAL SQ SCH ×4 (09:21→20:21)
[2019-11-23] MEDS: Insulin DETEMIR 100 UNIT/ML X5UNITS SQ SCH (10:14)
[2019-11-23] MEDS ORDERED: *HR* Warfarin 2.5 MG TABLET PO ONE (18:00)
[2019-11-23] MEDS: Doxycycline 100 MG CAPSULE PO SCH (20:02)
[2019-11-23] MEDS: Lactobacillus 1 EACH CAP.SPRINK PO SCH (20:02)
[2019-11-24] MEDS: Heparin 25,000UNIT/250ML 1/2NS 25,000 UNIT/250 ML IV.SOLN IVC SCH ×2 (02:22→23:05)
[2019-11-24] MEDS: Levothyroxine 25 MCG TABLET PO SCH (05:40)
[2019-11-24 06:26] LABS: Mean Platelet Volume 10.6 fL (9.4-12.4); Nucleated Red Blood Cells 0.1 /100 WBC (0)
[2019-11-24 06:27] LABS: Basophils # 0.3 K/mcL (0.0-0.2); Basophils % 1.7 %; Eosinophils # 0.4 K/mcL (0.0-0.6); Eosinophils % 2.3 %; Hematocrit 49.9 % (35.3-44.9); Hemoglobin 14.5 g/dL (11.5-15.4); Immature Platelets 9.7 % (1.1-6.1); Lymphocytes # 1.5 K/mcL (0.6-4.6); Lymphocytes % 8.1 %; Mean Corpuscular HGB Conc 29.1 g/dL (31.6-35.5); Mean Corpuscular Hemoglobin 23.1 pg (28.0-33.3); Mean Corpuscular Volume 79.5 fL (83.0-100.0); Monocytes # 0.7 K/mcL (0.0-1.3); Monocytes % 3.6 %; Neutrophils # 14.7 K/mcL (1.6-8.9); Platelet Count 427 K/mcL (140-400); Red Blood Count 6.28 M/mcL (3.82-4.97); Red Cell Distribution Width 23.5 % (11.5-14.5); Segmented Neutrophils % 81.3 %; White Blood Count 18.1 K/mcL (4.3-11.1)
[2019-11-24 06:32] LABS: BUN/Creatinine Ratio 22 (6-26); Blood Urea Nitrogen 17 mg/dL (8-23); Calcium 8.4 mg/dL (8.6-10.3); Carbon Dioxide 21 mEq/L (23-29); Chloride 110 mEq/L (98-107); Glucose 193 mg/dL (70-105); Magnesium 1.7 mg/dL (1.6-2.6); Osmolality,Calculated 293 (280-300); Sodium 138 mEq/L (136-145); eGFR For African Americans > 60 (> 60); eGFR For Non-African Americans > 60 (> 60)
[2019-11-24 07:02] LABS: INR 2.1; Prothrombin Time 23.7 Seconds (9.4-12.1)
[2019-11-24 07:19] LABS: Anisocytosis 1+ (Not Present); Platelet Estimate Normal (Normal)
[2019-11-24] MEDS: Cholecalciferol (D-3) 1,000 UNIT (25MCG) TABLET PO SCH (08:12)
[2019-11-24] MEDS: carvediloL 6.25 MG TABLET PO SCH ×2 (08:12→21:32)
[2019-11-24] MEDS: Multivit/Ca/Min/Fe/FA 1 TAB TABLET PO SCH (08:12)
[2019-11-24] MEDS: Lactobacillus 1 EACH CAP.SPRINK PO SCH ×2 (08:12→21:32)
[2019-11-24] MEDS: amLODIPine 5 MG TABLET PO SCH (08:12)
[2019-11-24] MEDS: Doxycycline 100 MG CAPSULE PO SCH ×2 (08:12→21:32)
[2019-11-24] MEDS: Insulin DETEMIR 100 UNIT/ML X5UNITS SQ SCH (08:12)
[2019-11-24] MEDS: Insulin LISPRO 300 UNITS/3 ML VIAL SQ SCH ×4 (08:12→21:32)
[2019-11-24] MEDS: lisinopriL 20 MG TABLET PO SCH (08:12)
[2019-11-24] MEDS ORDERED: *HR* Warfarin 3 MG TABLET PO ONE (18:00)
[2019-11-25 02:30] LABS: Hematocrit 49.1 % (35.3-44.9); Hemoglobin 14.3 g/dL (11.5-15.4); Mean Corpuscular HGB Conc 29.1 g/dL (31.6-35.5); Segmented Neutrophils % 82.9 %
[2019-11-25 02:32] LABS: Basophils # 0.3 K/mcL (0.0-0.2); Basophils % 1.5 %; Eosinophils # 0.5 K/mcL (0.0-0.6); Eosinophils % 2.4 %; Immature Granulocytes % 3.2 % (0-4); Immature Platelets 9.2 % (1.1-6.1); Lymphocytes # 1.4 K/mcL (0.6-4.6); Lymphocytes % 6.7 %; Mean Corpuscular Hemoglobin 22.9 pg (28.0-33.3); Mean Corpuscular Volume 78.7 fL (83.0-100.0); Mean Platelet Volume 11.2 fL (9.4-12.4); Monocytes # 0.7 K/mcL (0.0-1.3); Monocytes % 3.3 %; Neutrophils # 17.3 K/mcL (1.6-8.9); Nucleated Red Blood Cells 0.2 /100 WBC (0); Platelet Count 455 K/mcL (140-400); Red Blood Count 6.24 M/mcL (3.82-4.97); Red Cell Distribution Width 23.7 % (11.5-14.5); White Blood Count 20.9 K/mcL (4.3-11.1)
[2019-11-25 02:37] LABS: INR 1.8; Prothrombin Time 20.7 Seconds (9.4-12.1)
[2019-11-25 02:52] LABS: BUN/Creatinine Ratio 33 (6-26); Blood Urea Nitrogen 18 mg/dL (8-23); Calcium 8.1 mg/dL (8.6-10.3); Carbon Dioxide 19 mEq/L (23-29); Chloride 108 mEq/L (98-107); Glucose 146 mg/dL (70-105); Magnesium 1.6 mg/dL (1.6-2.6); Osmolality,Calculated 285 (280-300); Potassium 4.2 mEq/L (3.5-5.1); Sodium 135 mEq/L (136-145); eGFR For African Americans > 60 (> 60); eGFR For Non-African Americans > 60 (> 60)
[2019-11-25 03:04] LABS: Anisocytosis 1+ (Not Present); Platelet Estimate Normal (Normal)
[2019-11-25] MEDS: Levothyroxine 25 MCG TABLET PO SCH (05:09)
[2019-11-25] MEDS: Lactobacillus 1 EACH CAP.SPRINK PO SCH ×2 (08:06→20:34)
[2019-11-25] MEDS: Doxycycline 100 MG CAPSULE PO SCH ×2 (08:06→20:33)
[2019-11-25] MEDS: Multivit/Ca/Min/Fe/FA 1 TAB TABLET PO SCH (08:06)
[2019-11-25] MEDS: Cholecalciferol (D-3) 1,000 UNIT (25MCG) TABLET PO SCH (08:06)
[2019-11-25] MEDS: lisinopriL 20 MG TABLET PO SCH (08:06)
[2019-11-25] MEDS: amLODIPine 5 MG TABLET PO SCH (08:06)
[2019-11-25] MEDS: Insulin LISPRO 300 UNITS/3 ML VIAL SQ SCH ×4 (08:07→20:38)
[2019-11-25] MEDS: carvediloL 6.25 MG TABLET PO SCH ×2 (08:07→20:34)
[2019-11-25] MEDS: Insulin DETEMIR 100 UNIT/ML X5UNITS SQ SCH (08:07)
[2019-11-25] MEDS: Heparin 25,000UNIT/250ML 1/2NS 25,000 UNIT/250 ML IV.SOLN IVC SCH (15:36)
[2019-11-25] MEDS ORDERED: *HR* Warfarin 3 MG TABLET PO ONE (18:00)
[2019-11-25] MEDS ORDERED: lisinopriL 10 MG TABLET PO ONE (19:17)
[2019-11-25] MEDS ORDERED: carvediloL 6.25 MG TABLET PO SCH (21:00)
[2019-11-26] MEDS: Nystatin Cream 15 GM TUBE TP SCH ×2 (01:31→08:44)
[2019-11-26] MEDS: Levothyroxine 25 MCG TABLET PO SCH (05:24)
[2019-11-26 06:21] LABS: Hematocrit 50.1 % (35.3-44.9); Hemoglobin 14.7 g/dL (11.5-15.4); Mean Corpuscular HGB Conc 29.3 g/dL (31.6-35.5); Mean Corpuscular Hemoglobin 23.6 pg (28.0-33.3); Mean Corpuscular Volume 80.3 fL (83.0-100.0); Mean Platelet Volume 10.7 fL (9.4-12.4); Nucleated Red Blood Cells 0.3 /100 WBC (0); Platelet Count 453 K/mcL (140-400); Red Blood Count 6.24 M/mcL (3.82-4.97); Red Cell Distribution Width 23.5 % (11.5-14.5)
[2019-11-26 06:28] LABS: INR 1.7; Prothrombin Time 18.8 Seconds (9.4-12.1)
[2019-11-26 07:09] LABS: Eosinophils # 1.2 K/mcL (0.0-0.6); Monocytes # 0.4 K/mcL (0.0-1.3); Neutrophils # 16.4 K/mcL (1.6-8.9)
[2019-11-26 07:10] LABS: Platelet Estimate Increased (Normal)
[2019-11-26 07:16] LABS: BUN/Creatinine Ratio 31 (6-26); Blood Urea Nitrogen 22 mg/dL (8-23); Calcium 8.9 mg/dL (8.6-10.3); Carbon Dioxide 19 mEq/L (23-29); Chloride 106 mEq/L (98-107); Chol/HDL Ratio 4.5 (0-4.9); Cholesterol 206 mg/dL (< 200); Glucose 225 mg/dL (70-105); HDL Cholesterol 46 mg/dL (40-59); LDL Cholesterol,Calculated 98 mg/dL (< 100); Osmolality,Calculated 290 (280-300); Potassium 4.4 mEq/L (3.5-5.1); Sodium 135 mEq/L (136-145); Triglycerides 312 mg/dL (< 150); eGFR For African Americans > 60 (> 60); eGFR For Non-African Americans > 60 (> 60)
[2019-11-26] MEDS: Doxycycline 100 MG CAPSULE PO SCH ×2 (08:41→20:06)
[2019-11-26] MEDS: Multivit/Ca/Min/Fe/FA 1 TAB TABLET PO SCH (08:41)
[2019-11-26] MEDS: carvediloL 6.25 MG TABLET PO SCH ×2 (08:42→17:46)
[2019-11-26] MEDS: Lactobacillus 1 EACH CAP.SPRINK PO SCH ×2 (08:42→20:06)
[2019-11-26] MEDS: Cholecalciferol (D-3) 1,000 UNIT (25MCG) TABLET PO SCH (08:43)
[2019-11-26] MEDS: amLODIPine 5 MG TABLET PO SCH (08:44)
[2019-11-26] MEDS: Insulin LISPRO 300 UNITS/3 ML VIAL SQ SCH ×4 (08:45→20:09)
[2019-11-26] MEDS: Insulin DETEMIR 100 UNIT/ML X5UNITS SQ SCH (08:55)
[2019-11-26] MEDS ORDERED: lisinopriL 10 MG TABLET PO SCH (09:00)
[2019-11-26] MEDS ORDERED: Insulin DETEMIR 100 UNIT/ML X5UNITS SQ SCH (09:00)
[2019-11-26] MEDS ORDERED: Insulin DETEMIR 100 UNIT/ML X5UNITS SQ ONE (10:00)
[2019-11-26] MEDS: *HR* Heparin 5,000 UNIT/ML VIAL IVP PRN (14:59)
[2019-11-26] MEDS: Clotrimazole 1% CRM 15 GM TUBE TP SCH (16:29)
[2019-11-26] MEDS ORDERED: *HR* Warfarin 5 MG TABLET PO ONE (18:00)
[2019-11-27] MEDS: Levothyroxine 25 MCG TABLET PO SCH (05:31)
[2019-11-27 06:09] LABS: INR 2.1; Prothrombin Time 23.7 Seconds (9.4-12.1)
[2019-11-27 06:24] LABS: Basophils # 0.3 K/mcL (0.0-0.2); Basophils % 1.6 %; Eosinophils # 0.6 K/mcL (0.0-0.6); Eosinophils % 2.9 %; Hematocrit 49.3 % (35.3-44.9); Hemoglobin 14.7 g/dL (11.5-15.4); Immature Granulocytes % 3.8 % (0-4); Lymphocytes # 2.2 K/mcL (0.6-4.6); Lymphocytes % 10.7 %; Mean Corpuscular HGB Conc 29.8 g/dL (31.6-35.5); Mean Corpuscular Hemoglobin 23.5 pg (28.0-33.3); Mean Corpuscular Volume 78.9 fL (83.0-100.0); Mean Platelet Volume 10.8 fL (9.4-12.4); Monocytes # 0.7 K/mcL (0.0-1.3); Monocytes % 3.3 %; Neutrophils # 15.6 K/mcL (1.6-8.9); Nucleated Red Blood Cells 0.2 /100 WBC (0); Platelet Count 376 K/mcL (140-400); Red Blood Count 6.25 M/mcL (3.82-4.97); Red Cell Distribution Width 23.2 % (11.5-14.5); Segmented Neutrophils % 77.7 %; White Blood Count 20.1 K/mcL (4.3-11.1)
[2019-11-27 06:34] LABS: BUN/Creatinine Ratio 29 (6-26); Blood Urea Nitrogen 20 mg/dL (8-23); Carbon Dioxide 20 mEq/L (23-29); Chloride 107 mEq/L (98-107); Glucose 134 mg/dL (70-105); Osmolality,Calculated 285 (280-300); Potassium 4.5 mEq/L (3.5-5.1); Sodium 135 mEq/L (136-145); eGFR For African Americans > 60 (> 60); eGFR For Non-African Americans > 60 (> 60)
[2019-11-27 06:48] LABS: Anisocytosis 2+ (Not Present); Platelet Estimate Normal (Normal)
[2019-11-27 06:49] LABS: Reactive Lymphocytes Present (Not Present)
[2019-11-27] MEDS: Heparin 25,000UNIT/250ML 1/2NS 25,000 UNIT/250 ML IV.SOLN IVC SCH (07:53)
[2019-11-27] MEDS: Insulin LISPRO 300 UNITS/3 ML VIAL SQ SCH ×4 (08:39→20:02)
[2019-11-27] MEDS ORDERED: Insulin DETEMIR 100 UNIT/ML X5UNITS SQ SCH (09:00)
[2019-11-27] MEDS: Doxycycline 100 MG CAPSULE PO SCH ×2 (10:45→20:01)
[2019-11-27] MEDS: amLODIPine 5 MG TABLET PO SCH (10:45)
[2019-11-27] MEDS: carvediloL 6.25 MG TABLET PO SCH ×2 (10:45→17:08)
[2019-11-27] MEDS: lisinopriL 20 MG TABLET PO SCH (10:45)
[2019-11-27] MEDS: Lactobacillus 1 EACH CAP.SPRINK PO SCH ×2 (10:45→20:02)
[2019-11-27] MEDS: Cholecalciferol (D-3) 1,000 UNIT (25MCG) TABLET PO SCH (10:45)
[2019-11-27] MEDS: Multivit/Ca/Min/Fe/FA 1 TAB TABLET PO SCH (10:46)
[2019-11-27] MEDS: Clotrimazole 1% CRM 15 GM TUBE TP SCH (10:46)
[2019-11-27] MEDS ORDERED: *HR* Warfarin 5 MG TABLET PO SCH (18:00)
[2019-11-28] MEDS: Levothyroxine 25 MCG TABLET PO SCH (05:27)
[2019-11-28 06:44] VITALS: BP 186/67
[2019-11-28 07:25] LABS: INR 2.4; Prothrombin Time 27.5 Seconds (9.4-12.1)
[2019-11-28] MEDS: Doxycycline 100 MG CAPSULE PO SCH (07:48)
[2019-11-28] MEDS: Cholecalciferol (D-3) 1,000 UNIT (25MCG) TABLET PO SCH (07:48)
[2019-11-28] MEDS: Lactobacillus 1 EACH CAP.SPRINK PO SCH (07:48)
[2019-11-28] MEDS: amLODIPine 5 MG TABLET PO SCH (07:48)
[2019-11-28] MEDS: Multivit/Ca/Min/Fe/FA 1 TAB TABLET PO SCH (07:48)
[2019-11-28] MEDS: lisinopriL 20 MG TABLET PO SCH (07:49)
[2019-11-28] MEDS: carvediloL 6.25 MG TABLET PO SCH (07:49)
[2019-11-28] MEDS: Clotrimazole 1% CRM 15 GM TUBE TP SCH (07:50)
[2019-11-28] MEDS: Insulin LISPRO 300 UNITS/3 ML VIAL SQ SCH ×2 (07:50→12:01)
[2019-11-28] MEDS ORDERED: Insulin DETEMIR 100 UNIT/ML X5UNITS SQ SCH (09:00)
[2019-11-28] MEDS ORDERED: *HR* Warfarin 2.5 MG TABLET PO SCH (18:00)
== END 2019-11-28 12:32 | disposition home health service (06) | DRG 281 ==
LOC: EMEROOARM 15:18 → 2ANU 15:18 → SUATTDRO 21:22 → 2ANU 21:52 → SUATTDRO 11-20 13:45
PROVIDERS: ADMIT Internal Medicine; ATTEND Internal Medicine